=== PATIENT | male | born 1940 | race Caucasian/White ===

== ENCOUNTER 2023-01-20 23:30 | Inpatient (IN) | payer BC ==
[~2023-01-20] VITALS: Ht 162.6 cm; Wt 94.8 kg
--- NOTE | 2023-01-20 23:31 | NUR ---
Dr. Wheat examining patient.
[2023-01-20 23:35] VITALS: BP 104/61
[2023-01-20] MEDS ORDERED: NACL 0.9% 1,000 ML IV ONE (23:35)
[2023-01-20 23:52] LABS: BASOPHILS # (AUTO) 0.1 K/uL (0.00-0.22); BASOPHILS % (AUTO) 0.6 % (0.0-2.0); EOSINOPHILS # (AUTO) 0.4 K/uL (0-0.4); HEMATOCRIT 34.1 % (36-52); HEMOGLOBIN 11.3 g/dL (12.0-18.0); LYMPHOCYTES # (AUTO) 1.7 K/uL (2.0-11.5); MEAN CORPUSCULAR HEMOGLOBIN 30 pg (27-31); MEAN CORPUSCULAR HGB CONC 33 g/dL (33-37); MEAN CORPUSCULAR VOLUME 89.7 fL (80-94); MONOCYTES # (AUTO) 0.8 K/uL (0.8-1.0); MONOCYTES % (AUTO) 8.6 % (1.7-9.3); NEUTROPHILS % (AUTO) 66.8 % (42.2-75.2); PLATELET COUNT (AUTO) 160 K/uL (140-450); RED CELL DISTRIBUTION WIDTH 14.5 % (11.6-13.7); WHITE BLOOD COUNT (AUTO) 8.9 K/uL (4.8-10.8)
--- NOTE | 2023-01-21 | NUR ---
PT IS HERE TO GET CHECK FOR HIS SYNCOPE AT HOME 3 TIMES. PER AMBULANCE THE PT IS HAVING PRODUCTIVE COUGHING. PT IS ON NASAL CANULA 3 L AND GETTING SOME BOLUS. LUZ MARIA IS LATVIAN SPEAKER. ALERT ORIENTED X4.
[2023-01-21] MEDS ORDERED: guaiFENesin 20 MG/ML UDC PO ONE (00:15)
[2023-01-21] MEDS ORDERED: ACETAMINOPHEN EXTRA STRENGTH 500 MG TAB PO ONE (00:15)
[2023-01-21] MEDS ORDERED: DOXYCYCLINE 100 MG in DEXTROSE 5% 100 ML IV ONE (00:15)
[2023-01-21 00:22] LABS: ALBUMIN 3.8 g/dL (3.4-5.0); ASPARTATE AMINOTRANSFERASE 14 U/L (15-37); CARBON DIOXIDE 30.5 mmol/L (21-32); CHLORIDE 103 mmol/L (98-107); CREATININE 1.9 mg/dL (0.6-1.3); GLUCOSE 153 mg/dL (74-106); POTASSIUM 4.5 mmol/L (3.5-5.1); SODIUM SERUM 141 mmol/L (136-145); TOTAL BILIRUBIN 0.6 mg/dL (0.0-1.0); UREA NITROGEN, BLOOD 25 mg/dL (7-18)
[2023-01-21] MEDS ORDERED: guaiFENesin DM 200/20 MG-10 ML 10 ML UDC ONE (00:25)
[2023-01-21] MEDS ORDERED: guaiFENesin/CODEINE 100/10MG 5 ML UDC ONE (00:29)
[2023-01-21 00:32] LABS: APPEARANCE,URINE CLEAR (CLEAR); BILIRUBIN,URINE NEGATIVE (NEGATIVE); BLOOD, URINE NEGATIVE (NEGATIVE); COLOR,URINE YELLOW (YELLOW); LEUKOCYTE ESTERASE ,URINE NEGATIVE (NEGATIVE); NITRITE, URINE NEGATIVE (NEGATIVE); UGLUCOSE NEGATIVE (NEGATIVE)
--- NOTE | 2023-01-21 00:44 | NUR ---
PATIENT BELONGINGS DONE.
[2023-01-21] MEDS ORDERED: cefTRIAXone 1,000 MG VIAL ONE (00:46)
[2023-01-21] MEDS ORDERED: DOXYCYCLINE 100 MG VIAL IV ONE (00:46)
--- NOTE | 2023-01-21 01:00 | NUR ---
pt is having episode of coughing.
[2023-01-21] MEDS ORDERED: NACL 0.9% 1,000 ML IV ONE ×2 (01:30→07:50)
--- NOTE | 2023-01-21 03:00 | NUR ---
pt is resting in bed. no sign of distress noted.
[2023-01-21] MEDS ORDERED: METF-1253 PO (03:52)
[2023-01-21] MEDS ORDERED: ASPI-1822 PO (03:52)
[2023-01-21] MEDS ORDERED: LOSA100T2 PO ×2 (03:52→03:59)
[2023-01-21] MEDS ORDERED: FINA5TAB1 PO (03:52)
[2023-01-21] MEDS ORDERED: FURO-572 PO (03:52)
[2023-01-21] MEDS ORDERED: GABA300C PO (03:52)
[2023-01-21] MEDS ORDERED: METO25TA PO (03:52)
[2023-01-21] MEDS ORDERED: EZET10TA14 PO (03:52)
[2023-01-21] MEDS ORDERED: AMLO10TA PO (03:52)
[2023-01-21] MEDS ORDERED: ALBU0.0912 IH (03:59)
[2023-01-21] MEDS ORDERED: ROB PO (03:59)
[2023-01-21] MEDS ORDERED: TAMS0.4C97 PO (04:04)
[2023-01-21] MEDS ORDERED: PANT40EC PO (04:04)
[2023-01-21] MEDS ORDERED: INSU100S5 IJ (04:04)
[2023-01-21] MEDS ORDERED: INSU10SU2 SC (04:04)
[2023-01-21] MEDS ORDERED: PRAV20TA5 PO (04:04)
[2023-01-21] MEDS ORDERED: PRAV40TA3 PO (04:04)
[2023-01-21] MEDS ORDERED: NACL 0.9% 500 ML IV ONE (05:45)
[2023-01-21] MEDS ORDERED: NOREPINEPHRINE 4 MG in DEXTROSE 5% 250 ML IV ONE (06:55)
[2023-01-21] MEDS ORDERED: NOREPINEPHRINE 4 MG/4 ML VIAL IV ONE (07:04)
--- NOTE | 2023-01-21 07:45 | NUR ---
ASSUMED PATIENT CARE, CONCUR WITH PRIOR NURSING ASSESSMENT.
[2023-01-21] MEDS ORDERED: ACETAMINOPHEN 325 MG TAB PO PRN (07:50)
[2023-01-21] MEDS ORDERED: POTASSIUM CHLORIDE 10 MEQ TABER PO PRN (07:50)
[2023-01-21] MEDS ORDERED: ONDANSETRON 4 MG/2 ML VIAL IVP PRN (07:50)
[2023-01-21] MEDS ORDERED: DEXTROSE 50% 50 ML SYR IVP PRN (07:50)
[2023-01-21] MEDS ORDERED: MORPHINE SULFATE 2 MG/ML SYR IVP PRN (07:50)
[2023-01-21] MEDS ORDERED: ZOLPIDEM 10 MG TAB PO PRN (07:50)
[2023-01-21] MEDS ORDERED: LORazepam 2 MG/ML VIAL IVP PRN (07:50)
[2023-01-21] MEDS ORDERED: MAG SULF 2000 MG/WATER PREMIX 50 ML IV PRN (07:50)
[2023-01-21] MEDS ORDERED: INSULIN LISPRO SLIDING SCALE 100 UNITS/ML VIAL SUBQ PRN (07:50)
[2023-01-21] MEDS ORDERED: DOCUSATE SODIUM 100 MG GELCAP PO PRN (07:50)
--- NOTE | 2023-01-21 08:10 | NUR ---
TITRATED LEVOPHED TO 2MCG/MIN, WILL CONTINUE TO MONITOR BP AND HR.
[2023-01-21] MEDS: ASPIRIN 81 MG TAB.CHEW PO SCH (09:12)
--- NOTE | 2023-01-21 09:30 | NUR ---
BREAKFAST SERVED, ASSISTED WITH MEAL SETUP.
[2023-01-21] MEDS: ALBUTEROL 0.083% 2.5 MG/3 ML NEBU INH PRN ×2 (10:50→17:54)
[2023-01-21] MEDS: BLOOD GLUCOSE MONITORING 1 DEV DEV FS SCH ×3 (11:28→21:55)
[2023-01-21] MEDS ORDERED: PIPERACILLIN/TAZOBACTAM 2.25 GM VIAL IV ONE ×2 (12:42→21:38)
[2023-01-21] MEDS: PIPERACILLIN/TAZOBACTAM 2.25 GM in DEXTROSE 5% 50 ML IV SCH ×2 (12:43→21:56)
[2023-01-21] MEDS ORDERED: PIPERACILLIN/TAZOBACTAM 3.375 GM in DEXTROSE 5% 50 ML IV SCH (13:00)
--- NOTE | 2023-01-21 14:05 | NUR ---
DR DEL RIO AT BEDSIDE, COORDINATED CARE WITH
[2023-01-21] MEDS: methylPREDNISolone SS 40 MG/ML VIAL IVP SCH ×2 (15:46→21:57)
--- NOTE | 2023-01-21 16:05 | NUR ---
TITRATED LEVOPHED OFF, WILL CONTINUE CARDIAC MONITORING.
[2023-01-21] MEDS: BENZONATATE 100 MG CAPLF PO PRN (17:30)
--- NOTE | 2023-01-21 17:53 | NUR ---
TO CT VIA [facility].
--- NOTE | 2023-01-21 18:05 | NUR ---
BACK FROM CT.
--- NOTE | 2023-01-21 21:21 | NUR ---
return call from Dr. jimenez. pt off levophed for 5 hours, requesting to downgrade to telemetry status. per Dr. Cabrera ok to downgrade
--- NOTE | 2023-01-21 22:10 | NUR ---
NURSE REPORT REPORT OBTAINED FROM ER NURSE ROOSEVELT FROM ER.
--- NOTE | 2023-01-21 22:10 | NUR ---
Pt report given to THALIA. Transfer of care at this time.
--- NOTE | 2023-01-21 23:05 | NUR ---
NURSE NOTES RECEIVED PATIENT FROM ER. ABLE TO AMBULATE FROM [place] TO BED. MONITOR APPLIED WITH TELE SHOWING AFIB. VSS. AFEB. HOARSE COUGHING.
[2023-01-22 04:00] VITALS: BP 119/64
--- NOTE | 2023-01-22 04:00 | NUR ---
NURSE NOTES VSS. AFEB. NO C/O PAIN OR DISCOMFORT. O2 AT 2 L/MIN PER NASAL CANNULA.
[2023-01-22] MEDS: PIPERACILLIN/TAZOBACTAM 2.25 GM in DEXTROSE 5% 50 ML IV SCH ×3 (05:00→20:31)
[2023-01-22] MEDS ORDERED: PIPERACILLIN/TAZOBACTAM 2.25 GM VIAL IV ONE (05:21)
--- NOTE | 2023-01-22 05:50 | NUR ---
NURSE NOTES VSS. AFEB. COUGHING IS LESS. BLOOD GLUCOSE IS 309. NEED TO CALL THE MD FOR SLIDING SCALE INSULIN. GIVEN IVPB ZOSYN.
--- NOTE | 2023-01-22 06:55 | NUR ---
MD COMMUNICATION DR MOLINA WAS CALLED AND ASKED FOR SLIDING SCALE INSULIN. ASKED FOR MEDIUM DOSE SLIDING SCALE INSULIN ORDERED. ONLY HAVE SLIDING SCALE INSULIN.
[2023-01-22] MEDS ORDERED: DEXTROSE 50% 50 ML SYR IVP PRN (07:00)
--- NOTE | 2023-01-22 07:22 | NUR ---
receive the patient from the third shift lieutenant rn in rm 111A aox4 admitting diagnosis of sepsis . will continue to monitor .
[2023-01-22 07:35] LABS: BASOPHILS % (AUTO) 0.1 % (0.0-2.0); HEMATOCRIT 31.5 % (36-52); HEMOGLOBIN 10.5 g/dL (12.0-18.0); LYMPHOCYTES # (AUTO) 0.6 K/uL (2.0-11.5); LYMPHOCYTES % (AUTO) 6.7 % (20.5-51.1); MEAN CORPUSCULAR HEMOGLOBIN 30 pg (27-31); MEAN CORPUSCULAR HGB CONC 33 g/dL (33-37); MEAN CORPUSCULAR VOLUME 90.8 fL (80-94); MONOCYTES # (AUTO) 0.1 K/uL (0.8-1.0); MONOCYTES % (AUTO) 1.8 % (1.7-9.3); NEUTROPHILS # (AUTO) 7.6 K/uL (1.8-7.7); NEUTROPHILS % (AUTO) 91.4 % (42.2-75.2); PLATELET COUNT (AUTO) 160 K/uL (140-450); RED BLOOD CELL COUNT(AUTO) 3.47 MIL/uL (4.20-6.10); RED CELL DISTRIBUTION WIDTH 14.6 % (11.6-13.7); WHITE BLOOD COUNT (AUTO) 8.3 K/uL (4.8-10.8)
[2023-01-22] MEDS: BLOOD GLUCOSE MONITORING 1 DEV DEV FS SCH ×4 (07:38→20:43)
[2023-01-22] MEDS: INSULIN LISPRO SLIDING SCALE 100 UNITS/ML VIAL SUBQ PRN ×3 (07:39→20:43)
--- NOTE | 2023-01-22 07:44 | NUR ---
NURSE NOTES BG THIS AM 309- GIVEN 8 UNITS HUMALOG. THALIA CHILDERS RN
--- NOTE | 2023-01-22 07:45 | NUR ---
NURSE REPORT REPORT GIVEN TO [facility] AG[facility] TO ASSUME CARE. ALL QUESTIONS ANSWERED. THALIA CHILDERS RN
[2023-01-22 07:46] LABS: ANION GAP 15.1 (8-16); CHLORIDE 103 mmol/L (98-107); CREATININE 2.1 mg/dL (0.6-1.3); GLUCOSE 352 mg/dL (74-106); SODIUM SERUM 136 mmol/L (136-145); UREA NITROGEN, BLOOD 38 mg/dL (7-18)
[2023-01-22 07:58] LABS: POTASSIUM 6.1 mmol/L (3.5-5.1)
[2023-01-22 08:00] VITALS: BP 139/68
[2023-01-22] MEDS: ALBUTEROL 0.083% 2.5 MG/3 ML NEBU INH SCH ×3 (08:40→20:13)
[2023-01-22] MEDS ORDERED: SODIUM ZIRCONIUM CYCLOSILICATE 10 GM POWD.PACK PO SCH ×3 (08:45→20:00)
[2023-01-22] MEDS ORDERED: CALCIUM GLUCONATE 10% 1,000 MG in NACL 0.9% 50 ML IV SCH (09:00)
--- NOTE | 2023-01-22 09:02 | NUR ---
PATIENT HAS BEEN SCREENED AND CATEGORIZED MODERATE NUTRITION RISK. PATIENT WILL BE SEEN WITHIN 3-5 DAYS OF ADMISSION. REVIEWED BY ROSARIO BARRON RD
[2023-01-22] MEDS: methylPREDNISolone SS 40 MG/ML VIAL IVP SCH ×2 (09:12→20:31)
[2023-01-22] MEDS: ASPIRIN 81 MG TAB.CHEW PO SCH (09:13)
[2023-01-22] MEDS ORDERED: ALBUTEROL 0.083% 2.5 MG/3 ML NEBU INH SCH (09:20)
--- NOTE | 2023-01-22 09:30 | NUR ---
md Neff made her rounds , she prescribe breathing treatments with the respiratory therapist .
--- NOTE | 2023-01-22 10:00 | NUR ---
the patinet potassium level was 6.1 . md Neff order lokelma 10 mg x1 per orem , calcium gluconate 1gm thru intravenous administration ,. noted and carried out . will continue to monitor .
[2023-01-22 12:00] VITALS: BP 127/67
--- NOTE | 2023-01-22 12:05 | NUR ---
potaassium level is level is still 5.2 . lokelma will be given at 1400
[2023-01-22 12:45] LABS: ANION GAP 17.2 (8-16); CHLORIDE 103 mmol/L (98-107); CREATININE 2.3 mg/dL (0.6-1.3); GLUCOSE 374 mg/dL (74-106); POTASSIUM 5.2 mmol/L (3.5-5.1); SODIUM SERUM 137 mmol/L (136-145); UREA NITROGEN, BLOOD 40 mg/dL (7-18)
[2023-01-22 16:00] VITALS: BP 114/56
[2023-01-22] MEDS ORDERED: FUROSEMIDE 20 MG/2 ML VIAL IVP SCH (16:00)
--- NOTE | 2023-01-22 17:09 | NUR ---
pharmacy called . if the potassium level is more than 6 tomorrow . we still have to give lokelma TID tomorrow as per Md order
--- NOTE | 2023-01-22 18:33 | NUR ---
will endorse to cnc machinist 2nd shift rn fro continuity of care . to monitor potassium level tomorrow morning from the laboratory
[2023-01-22 20:00] VITALS: BP 115/60
--- NOTE | 2023-01-22 20:00 | NUR ---
NURSE REPORT REPORT OBTAINED FROM [facility] NURSE AGUSTIN AT 1930 AND THIS NURSE ASSUMED CARE OF PATIENT. VSS. AFEB. ON TELE WITH AFIB- 80. COUGHING STILL AND WILL GIVE TENSALON PEARLE. ALSO FOR THE ELEVATED K- CONTINUE ON LOKELMA PO.
[2023-01-22] MEDS: BENZONATATE 100 MG CAPLF PO PRN (20:50)
[2023-01-22] MEDS ORDERED: INSULIN LANTUS 100 UNITS/ML 10 ML VIAL SUBQ SCH (21:00)
[2023-01-23] VITALS: BP 120/77
--- NOTE | 2023-01-23 | NUR ---
NURSE NOTES VSS. AFEB. TELE MONITOR WITH AFIB 88. NO C/O PAIN OR DISCOMFORT.
[2023-01-23 04:00] VITALS: BP 99/62
--- NOTE | 2023-01-23 04:00 | NUR ---
NURSE REPORT VSS. AFEB. O2 SAT 99%, TELE MONITOR WITH AFIB 71.
[2023-01-23] MEDS: PIPERACILLIN/TAZOBACTAM 2.25 GM in DEXTROSE 5% 50 ML IV SCH ×3 (05:49→20:22)
--- NOTE | 2023-01-23 05:50 | NUR ---
NURSE NOTES THIS NURSE VARINDER LABS FROM THE PICC FOR THE LITIGATION ASSISTANT. MEMBERSHIP MANAGER WAS WITH PATIENT AND MASK AND CANNULA WASN'T WORKING WELL AND O2 SAT IN 80%. RT CALLED TO FIX THE HIGH FLOW O2 AND NRM. Addendum: 01/23/23 at 0614 by Agency 01 CLAYTON RN CORRECTION: WRONG PATIENT
[2023-01-23] MEDS: INSULIN LISPRO SLIDING SCALE 100 UNITS/ML VIAL SUBQ PRN ×4 (06:48→20:30)
[2023-01-23] MEDS: BLOOD GLUCOSE MONITORING 1 DEV DEV FS SCH ×4 (06:52→21:00)
[2023-01-23] MEDS: BENZONATATE 100 MG CAPLF PO PRN (06:57)
--- NOTE | 2023-01-23 07:00 | NUR ---
NURSE NOTES AM BG 318. GIVEN 8 UNITS OF HUMALOG INSULIN. THEN MEDICATED WITH TENSALON PEARLE FOR SEVERE HARSH COUGH.
--- NOTE | 2023-01-23 07:08 | NUR ---
receive the patient from the cage shift manager rn in rm 11A aox4 hungarian speaking . admitting diagnosis sepsis . will continue to monitor
--- NOTE | 2023-01-23 07:12 | NUR ---
NURSE REPORT REPORT GIVEN TO [facility] TO ASSUME CARE. ALL QUESTIONS ANSWERED. THALIA CHILDERS RN
[2023-01-23 07:30] LABS: CARBON DIOXIDE 25.7 mmol/L (21-32); CHLORIDE 103 mmol/L (98-107); GLUCOSE 334 mg/dL (74-106); POTASSIUM 4.7 mmol/L (3.5-5.1); SODIUM SERUM 140 mmol/L (136-145); UREA NITROGEN, BLOOD 38 mg/dL (7-18)
[2023-01-23] MEDS: ALBUTEROL 0.083% 2.5 MG/3 ML NEBU INH SCH ×3 (07:31→21:04)
[2023-01-23 07:32] LABS: HEMATOCRIT 31.8 % (36-52); HEMOGLOBIN 10.8 g/dL (12.0-18.0); LYMPHOCYTES # (AUTO) 0.6 K/uL (2.0-11.5); LYMPHOCYTES % (AUTO) 5.3 % (20.5-51.1); MEAN CORPUSCULAR HEMOGLOBIN 30 pg (27-31); MEAN CORPUSCULAR HGB CONC 34 g/dL (33-37); MEAN CORPUSCULAR VOLUME 88.1 fL (80-94); MONOCYTES # (AUTO) 0.4 K/uL (0.8-1.0); MONOCYTES % (AUTO) 3.9 % (1.7-9.3); NEUTROPHILS % (AUTO) 90.8 % (42.2-75.2); PLATELET COUNT (AUTO) 188 K/uL (140-450); RED BLOOD CELL COUNT(AUTO) 3.61 MIL/uL (4.20-6.10); WHITE BLOOD COUNT (AUTO) 11.1 K/uL (4.8-10.8)
[2023-01-23 08:00] VITALS: BP 139/68
[2023-01-23] MEDS: ASPIRIN 81 MG TAB.CHEW PO SCH (08:03)
[2023-01-23] MEDS: methylPREDNISolone SS 40 MG/ML VIAL IVP SCH ×2 (08:03→20:25)
[2023-01-23] MEDS ORDERED: SODIUM ZIRCONIUM CYCLOSILICATE 10 GM POWD.PACK PO SCH (09:00)
--- NOTE | 2023-01-23 09:13 | NUR ---
DC PLANNING ASSESSMENT COMPLETE PLEASE REFER TO ASSESSMENT FOR DETAILS LATE ENTRY, COLLAT INFO GATHERED 01/22/23. INITIALLY MET WITH PT AT BEDSIDE TO COMPLETE ASSESSMENT, PT PRIMARILY ST LUCIAN SPEAKING THEREFORE, CORK INSULATION INSTALLER UTILIZED CLEMENTE [id number]. PT STRUGGLED TO COMPLETE ASSESSMENT DUE TO EXCESSIVE COUGH AND PROVIDED SW WITH PERMISSION TO CALL WARREN, ALESHIA, TO GATHER COLLAT INFO. OUTREACHED TO PTS DAUGHTER WARREN, TO GATHER COLLAT INFO, WARREN PRIMARILY ST LUCIAN SPEAKING, CORK INSULATION INSTALLER UTILIZED KELLEY [id number] PT REPORTED TO UTILIZE CANE AND IS REPORTED TO COMPLETE ADL'S INDEPENDENTLY. PT RESIDES IN A SINGLE STORY HOME, WITH FAMILY, AT THE ADDRESS LISTED ON FILE [employer] TENTATIVE DC PLAN IS FOR PT TO RETURN HOME WITH FAMILY PROVIDING TRANSPORATION, WHEN MEDICALLY STABLE. Addendum: 01/23/23 at 0915 by Sergo Maher SS Amended: Links added.
--- NOTE | 2023-01-23 10:30 | NUR ---
potassium level of the patinet is within normal limits 4.7 . lokalem order was not given . will continue to monitor .
[2023-01-23 12:00] VITALS: BP 127/67
--- NOTE | 2023-01-23 15:10 | NUR ---
the family requested to be transfer to another room due to their complAIN OF HIS ROOM MATE . THE CHARGE NURSE TRANSFER . TO ROOM 125 b
[2023-01-23 16:16] VITALS: BP 114/56
--- NOTE | 2023-01-23 18:44 | NUR ---
will endorse to night assistant rn for continuity of care . to monitor potassium level of the of the patient . still on antibiotics therapy for prevention of sepsis , will cntinue monitor blood sugar level of the patient
[2023-01-23 20:00] VITALS: BP 139/80
--- NOTE | 2023-01-23 20:00 | NUR ---
NURSE REPORT REPORT OBTAINED FROM [facility] NURSE AGUSTIN AT 1910 AND THIS NURSE ASSUMED CARE OF PATIENT. VSS. AFEB. ON TELE WITH AFIB- 76. NO C/O PAIN OR DISCOMFORT. COUGHING IS LESS.
--- NOTE | 2023-01-23 20:10 | NUR ---
NURSE NOTES HS BG 381. GIVEN HUMALOG 10 UNITS AND SCHEDULED 20 UNITS GLARGINE. ON IV SOLU-MEDROL
[2023-01-23] MEDS ORDERED: INSULIN LANTUS 100 UNITS/ML 10 ML VIAL SUBQ SCH (21:00)
[2023-01-24] VITALS: BP 143/74
--- NOTE | 2023-01-24 | NUR ---
NURSE NOTES VSS. AFEB. TELE MONITOR AFIB 72. NO C/O PAIN OR DISCOMFORT.
--- NOTE | 2023-01-24 01:29 | NUR ---
NURSE NOTES GIVEN ANOTHER BLANKET SINCE SLIGHTLY COLD IN ROOM. VSS. AFEB.
[2023-01-24 05:00] VITALS: BP 146/81
--- NOTE | 2023-01-24 05:00 | NUR ---
NURSE NOTES VSS. AFEB. NO C/O PAIN OR DISCOMFORT. IVPB ZOSYN GIVEN. VOIDS WELL IN URINAL.
[2023-01-24] MEDS: PIPERACILLIN/TAZOBACTAM 2.25 GM in DEXTROSE 5% 50 ML IV SCH (05:08)
[2023-01-24] MEDS: INSULIN LISPRO SLIDING SCALE 100 UNITS/ML VIAL SUBQ PRN ×2 (06:06→11:32)
[2023-01-24] MEDS: BLOOD GLUCOSE MONITORING 1 DEV DEV FS SCH ×2 (06:10→11:29)
--- NOTE | 2023-01-24 06:15 | NUR ---
NURSE NOTES AM BG 333. GIVEN 8 UNITS HUMALOG SQ AND WARM APPLE JUICE GIVEN
--- NOTE | 2023-01-24 07:06 | NUR ---
NURSE REPORT REPORT GIVEN TO DAY SHIFT NURSE SAIMA TO ASSUME CARE OF PATIENT. ALL QUESTIONS ANSWERED. THALIA CHILDERS RN
[2023-01-24 07:10] LABS: BASOPHILS % (AUTO) 0.1 % (0.0-2.0); HEMATOCRIT 33.9 % (36-52); HEMOGLOBIN 11.3 g/dL (12.0-18.0); LYMPHOCYTES # (AUTO) 0.5 K/uL (2.0-11.5); LYMPHOCYTES % (AUTO) 5.4 % (20.5-51.1); MEAN CORPUSCULAR HEMOGLOBIN 30 pg (27-31); MEAN CORPUSCULAR HGB CONC 33 g/dL (33-37); MEAN CORPUSCULAR VOLUME 90.3 fL (80-94); MONOCYTES # (AUTO) 0.3 K/uL (0.8-1.0); MONOCYTES % (AUTO) 3.7 % (1.7-9.3); NEUTROPHILS # (AUTO) 8.4 K/uL (1.8-7.7); NEUTROPHILS % (AUTO) 90.8 % (42.2-75.2); PLATELET COUNT (AUTO) 191 K/uL (140-450); RED BLOOD CELL COUNT(AUTO) 3.75 MIL/uL (4.20-6.10); RED CELL DISTRIBUTION WIDTH 13.9 % (11.6-13.7); WHITE BLOOD COUNT (AUTO) 9.3 K/uL (4.8-10.8)
[2023-01-24] MEDS: ALBUTEROL 0.083% 2.5 MG/3 ML NEBU INH SCH ×2 (07:26→13:30)
--- NOTE | 2023-01-24 07:31 | NUR ---
NURSE NOTES THIS NURSE CALLED DAUGHTER RONALD IF THE PATIENT HAD FLU AND SHE STATED SHE DON'T KNOW IF IT WAS THE FLU OR PNEUMONIA VACCINE. SHE WAS ASKED TO CALL THE PLACE HE HAD THE VACCINE IF FLU OR PNEUMONIA VACCINE.
[2023-01-24 07:40] LABS: ANION GAP 10.4 (8-16); CARBON DIOXIDE 31.8 mmol/L (21-32); CHLORIDE 106 mmol/L (98-107); CREATININE 1.4 mg/dL (0.6-1.3); GLUCOSE 354 mg/dL (74-106); POTASSIUM 5.2 mmol/L (3.5-5.1); SODIUM SERUM 143 mmol/L (136-145); UREA NITROGEN, BLOOD 35 mg/dL (7-18)
[2023-01-24 08:00] VITALS: BP 101/77
[2023-01-24] MEDS: ASPIRIN 81 MG TAB.CHEW PO SCH (08:54)
[2023-01-24] MEDS: methylPREDNISolone SS 40 MG/ML VIAL IVP SCH (08:55)
[2023-01-24] MEDS ORDERED: SODIUM ZIRCONIUM CYCLOSILICATE 10 GM POWD.PACK PO SCH (09:30)
--- NOTE | 2023-01-24 11:29 | NUR ---
SCREEN FOR LOW TERRY SCALE AT RISK, CONTINUE TO FOLLOW PRESSURE ULCER PREVENTION INTERVENTIONS. -TURN AND REPOSITION PATIENT Q 2H, ASSIST IF NEEDED -ASSESS AND MONITOR SKIN CONDITION DURING POSITION CHANGES -OFFLOAD BILATERAL HEELS BY PLACING PILLOWS UNDER CALVES AT ALL TIMES, UNLESS OTHERWISE CONTRAINDICATED -PRESSURE REDISTRIBUTION BY PLACING PILLOWS AND OFFLOADING SACRALCOCCYX -KEEP SKIN CLEAN AND DRY AT ALL TIMES.
[2023-01-24 13:40] VITALS: BP 101/77
--- NOTE | 2023-01-24 14:16 | NUR ---
DISCHARGE INSTRUCTIONS EXPLAINED, PT VERBALIZED UNDERSTANDING. IV REMOVED, BELONGINGS REMOVED.
== END 2023-01-24 14:00 | disposition home or self-care (01) | DRG 469 ==
LOC: MED 23:30 → MTU 01-21 07:46 → MMU 01-23 15:15
PROVIDERS: ADMIT Family Medicine; ATTEND Family Medicine
DX: N17.0 Acute kidney failure with tubular necrosis (principal); R65.21 Severe sepsis with septic shock; A41.9 Sepsis, unspecified organism; J18.9 Pneumonia, unspecified organism; I13.0 Hypertensive heart and chronic kidney disease with heart failure and stage 1 through stage 4 chronic kidney disease, or unspecified chronic kidney disease; E87.20 Acidosis, unspecified; I95.9 Hypotension, unspecified; I50.9 Heart failure, unspecified; J44.0 Chronic obstructive pulmonary disease with (acute) lower respiratory infection; E11.22 Type 2 diabetes mellitus with diabetic chronic kidney disease; J44.1 Chronic obstructive pulmonary disease with (acute) exacerbation; E66.9 Obesity, unspecified; E78.5 Hyperlipidemia, unspecified; N18.9 Chronic kidney disease, unspecified; I48.91 Unspecified atrial fibrillation; E87.6 Hypokalemia; Z20.822 Contact with and (suspected) exposure to COVID-19; Z79.84 Long term (current) use of oral hypoglycemic drugs; Z79.899 Other long term (current) drug therapy; Z79.4 Long term (current) use of insulin; Z79.01 Long term (current) use of anticoagulants; Z68.35 Body mass index [BMI] 35.0-35.9, adult
CPT/HCPCS: 36415; 70450; 71045; 76770; 80048; 80053; 81003; 82550; 82553; 82948; 83605; 83735; 83880; 84484; 85025; 87040; 87081; 93005; 94640; 96361; 96365; 96368; 99291; J0610; J0696; J1815; J1940; J2060; J2270; J2405; J2543; J2920; J3490; J7060; J7613; Q0092